=== PATIENT | male | born 1965 | race Two or more races ===

== ENCOUNTER 2021-02-01 12:49 | Inpatient (IN) | payer MEDICAID ==
[~2021-02-01] VITALS: Ht 160 cm; Wt 76.5 kg
[2021-02-01] MEDS ORDERED: SODIUM CHLORIDE 0.9% 1,000 ML IV ONE (15:45)
[2021-02-01] MEDS ORDERED: KETOROLAC TROMETHAMINE 30 MG/ML VIAL IVP ONE (15:45)
[2021-02-01] MEDS ORDERED: VANCOMYCIN HCL 1 GM/D5% WATER 200 ML IV ONE (15:45)
[2021-02-01] MEDS ORDERED: 0.9% SODIUM CHLORIDE 10 ML SYRINGE IVP PRN (15:45)
[2021-02-01 16:14] LABS: COVID AG,FIA SOURCE NASOPHARYNGEAL
[2021-02-01 16:17] LABS: BASOPHILS % (AUTO) 0.2 % (0.0-2.0); EOSINOPHILS % (AUTO) 0.8 % (1.0-6.0); HEMATOCRIT 42.7 % (41-53); HEMOGLOBIN 14.4 g/dL (13.5-17.5); LYMPHOCYTES # (AUTO) 1.3 K/uL (1.0-4.8); LYMPHOCYTES % (AUTO) 7.8 % (22.0-44.0); MEAN CORPUSCULAR HEMOGLOBIN 33.7 pg (26.0-34.0); MEAN CORPUSCULAR HGB CONC 33.8 G/dL (31.0-37.0); MEAN CORPUSCULAR VOLUME 100 fL (80-100); MONOCYTES # (AUTO) 1.4 K/uL (0.1-1.0); MONOCYTES % (AUTO) 7.9 % (2.0-9.0); NEUTROPHILS # (AUTO) 14.5 K/uL (1.8-7.7); NEUTROPHILS % (AUTO) 83.3 % (40.0-70.0); PLATELET COUNT (AUTO) 213 K/uL (150-450); RED BLOOD CELL COUNT(AUTO) 4.28 MIL/uL (4.50-5.90); RED CELL DISTRIBUTION WIDTH 12.3 % (11.5-14.5)
[2021-02-01 16:29] LABS: PROTHROMBIN TIME 11.1 SEC (9.4-11.6)
[2021-02-01 16:57] LABS: ALANINE AMINOTRANSFERASE 60 U/L (12-78); ALBUMIN 3.3 g/dL (3.4-5.0); ALKALINE PHOSPHATASE 102 U/L (46-116); ANION GAP 14 mmol/L (8-16); ASPARTATE AMINOTRANSFERASE 15 U/L (15-37); BILIRUBIN,TOTAL 1.5 mg/dL (0.1-1.0); CALCIUM, TOTAL 8.9 mg/dL (8.8-10.5); CARBON DIOXIDE 23 mmol/L (22-29); CHLORIDE 90 mmol/L (98-107); CREATINE KINASE, TOTAL ONLY 53 U/L (39-308); CREATININE 0.76 mg/dL (0.60-1.30); GLOMERULAR FILTR. RATE CALC > 60 mL/min (>60); GLUCOSE,RANDOM 270 mg/dL (70-110); POTASSIUM 3.7 mmol/L (3.5-5.1); SODIUM SERUM 127 mmol/L (136-145); TOTAL PROTEIN, SERUM 8.5 g/dL (6.4-8.2); UREA NITROGEN, BLOOD 15 mg/dL (7-18)
[2021-02-01 17:03] LABS: INFLUENZA TYPE A NEGATIVE FOR TYPE A (NEGATIVE); INFLUENZA TYPE B NEGATIVE FOR TYPE B (NEGATIVE)
[2021-02-01 17:04] LABS: LACTIC ACID 1.9 mmol/L (0.4-2.0)
[2021-02-01] MEDS ORDERED: SODIUM CHLORIDE 0.9% 100 ML ONE (17:22)
[2021-02-01] MEDS ORDERED: IOHEXOL 350 MG/ML 100 ML VIAL ONE (17:22)
[2021-02-01] MEDS ORDERED: ONDANSETRON HCL 4 MG/2 ML VIAL IVP PRN (19:15)
[2021-02-01] MEDS ORDERED: DEXTROSE 50%-WATER 25 GM/50 ML SYRINGE IVP PRN (19:15)
[2021-02-01] MEDS: SODIUM CHLORIDE 0.45% 1,000 ML IV SCH (19:30)
[2021-02-01] MEDS ORDERED: INSULIN GLARGINE,HUM.REC.ANLOG 100 UNITS/ML SQ SCH (21:00)
[2021-02-02] MEDS: VANCOMYCIN HCL 1 GM/D5% WATER 200 ML IV SCH ×7 (00:38→23:28)
[2021-02-02] MEDS: HEPARIN SODIUM,PORCINE 5,000 UNITS/ML VIAL SQ SCH ×4 (00:40→23:28)
[2021-02-02 04:24] LABS: APPEARANCE,URINE CLEAR (CLEAR); BILIRUBIN,URINE NEGATIVE (NEGATIVE); GLUCOSE, URINE (UA) >=1000 mg/dL (NEGATIVE); KETONES,URINE >=80 mg/dL (NEGATIVE); LEUKOCYTE ESTERASE ,URINE NEGATIVE (NEGATIVE); NITRATE,URINE NEGATIVE (NEGATIVE); OCCULT BLOOD,URINE NEGATIVE (NEGATIVE); PH,URINE 5.5 (5.0-8.0); PROTEIN,URINE NEGATIVE (NEGATIVE)
[2021-02-02 05:01] LABS: BACTERIA,URINE Rare /HPF (None Seen); RBC,URINE 0-2 /HPF (0-2); WBC,URINE 0-2 /HPF (0-5)
[2021-02-02 05:04] LABS: ANION GAP 14 mmol/L (8-16); CALCIUM, TOTAL 8.2 mg/dL (8.8-10.5); CARBON DIOXIDE 23 mmol/L (22-29); CHLORIDE 95 mmol/L (98-107); CREATININE 0.68 mg/dL (0.60-1.30); GLOMERULAR FILTR. RATE CALC > 60 mL/min (>60); GLUCOSE,RANDOM 225 mg/dL (70-110); POTASSIUM 3.1 mmol/L (3.5-5.1); SODIUM SERUM 132 mmol/L (136-145); UREA NITROGEN, BLOOD 11 mg/dL (7-18)
[2021-02-02] MEDS: SODIUM CHLORIDE 0.45% 1,000 ML IV SCH ×3 (05:42→21:46)
[2021-02-02 09:23] LABS: GLUCOSE,POINT OF CARE 384 MG/DL (70-110)
[2021-02-02] MEDS: INSULIN LISPRO 100 UNITS/ML SQ PRN ×4 (09:55→21:08)
[2021-02-02] MEDS ORDERED: POTASSIUM CHL 10 MEQ/WATER 50 ML IV PRN (10:00)
[2021-02-02 11:14] VITALS: BP 159/92
[2021-02-02] MEDS: POTASSIUM CHLORIDE 20 MEQ ER TABLET PO PRN ×3 (11:34→22:56)
[2021-02-02] MEDS ORDERED: PNEUMOCOCCAL VACCINE POLYVALENT 0.5 ML VIAL [PPSV23] IM. ONE (12:00)
[2021-02-02 12:50] LABS: GLUCOMETER DEV NAME(LOC) 6N.1; GLUCOSE,POINT OF CARE 275 MG/DL (70-110)
[2021-02-02 15:38] VITALS: BP 139/80
[2021-02-02 18:50] LABS: GLUCOMETER DEV NAME(LOC) 6N.1; GLUCOSE,POINT OF CARE 174 MG/DL (70-110)
[2021-02-02 19:29] VITALS: BP_SYST 124; BP_SYST 146; BP_DIAS 70; BP_DIAS 88
[2021-02-02] MEDS: MELATONIN 3 MG TABLET PO PRN (20:59)
[2021-02-02] MEDS: INSULIN GLARGINE,HUM.REC.ANLOG 100 UNITS/ML SQ SCH (21:01)
[2021-02-02 23:20] VITALS: BP 136/74
[2021-02-03 03:11] VITALS: BP 127/73
[2021-02-03 03:18] LABS: GLUCOMETER DEV NAME(LOC) 6S.1; GLUCOSE,POINT OF CARE 242 MG/DL (70-110)
[2021-02-03] MEDS: INSULIN LISPRO 100 UNITS/ML SQ PRN ×4 (06:55→20:38)
[2021-02-03 07:04] LABS: BASOPHILS % (AUTO) 0.5 % (0.0-2.0); EOSINOPHILS % (AUTO) 3.6 % (1.0-6.0); HEMATOCRIT 38.2 % (41-53); LYMPHOCYTES # (AUTO) 1.9 K/uL (1.0-4.8); LYMPHOCYTES % (AUTO) 13.2 % (22.0-44.0); MEAN CORPUSCULAR HEMOGLOBIN 33.8 pg (26.0-34.0); MEAN CORPUSCULAR VOLUME 99 fL (80-100); MONOCYTES # (AUTO) 1.6 K/uL (0.1-1.0); MONOCYTES % (AUTO) 11.2 % (2.0-9.0); NEUTROPHILS # (AUTO) 10.3 K/uL (1.8-7.7); NEUTROPHILS % (AUTO) 71.5 % (40.0-70.0); PLATELET COUNT (AUTO) 216 K/uL (150-450); RED BLOOD CELL COUNT(AUTO) 3.84 MIL/uL (4.50-5.90); RED CELL DISTRIBUTION WIDTH 11.8 % (11.5-14.5)
[2021-02-03 07:49] LABS: ALANINE AMINOTRANSFERASE 35 U/L (12-78); ALBUMIN 2.3 g/dL (3.4-5.0); ALKALINE PHOSPHATASE 99 U/L (46-116); ANION GAP 9 mmol/L (8-16); ASPARTATE AMINOTRANSFERASE 16 U/L (15-37); BILIRUBIN,TOTAL 0.8 mg/dL (0.1-1.0); CARBON DIOXIDE 26 mmol/L (22-29); CHLORIDE 97 mmol/L (98-107); CREATININE 0.58 mg/dL (0.60-1.30); GLOMERULAR FILTR. RATE CALC > 60 mL/min (>60); GLUCOSE,RANDOM 176 mg/dL (70-110); POTASSIUM 3.5 mmol/L (3.5-5.1); SODIUM SERUM 132 mmol/L (136-145); TOTAL PROTEIN, SERUM 6.9 g/dL (6.4-8.2); UREA NITROGEN, BLOOD 9 mg/dL (7-18); VANCOMYCIN,RANDOM 7.4 mcg/mL (25.0-50.0)
[2021-02-03 08:15] VITALS: BP 132/76
[2021-02-03 08:19] LABS: GLUCOMETER DEV NAME(LOC) 6N.1; GLUCOSE,POINT OF CARE 179 MG/DL (70-110)
[2021-02-03] MEDS: HEPARIN SODIUM,PORCINE 5,000 UNITS/ML VIAL SQ SCH ×3 (08:53→23:52)
[2021-02-03] MEDS: VANCOMYCIN HCL 1 GM/D5% WATER 200 ML IV SCH (08:53)
[2021-02-03] MEDS: SODIUM CHLORIDE 0.45% 1,000 ML IV SCH ×2 (11:18→23:52)
[2021-02-03] MEDS: VANCOMYCIN HCL 1.25 GM in DEXTROSE 5%-WATER 250 ML IV SCH ×2 (17:06→23:55)
[2021-02-03 18:07] LABS: GLUCOMETER DEV NAME(LOC) 6S.1; GLUCOSE,POINT OF CARE 240 MG/DL (70-110)
[2021-02-03 18:07] LABS: GLUCOMETER DEV NAME(LOC) 6N.1; GLUCOSE,POINT OF CARE 300 MG/DL (70-110)
[2021-02-03 19:45] VITALS: BP 147/91
[2021-02-03] MEDS: INSULIN GLARGINE,HUM.REC.ANLOG 100 UNITS/ML SQ SCH (20:37)
[2021-02-03] MEDS: MELATONIN 3 MG TABLET PO PRN (20:39)
[2021-02-04 00:37] VITALS: BP 142/85
[2021-02-04 01:17] LABS: GLUCOMETER DEV NAME(LOC) 6N.1; GLUCOSE,POINT OF CARE 275 MG/DL (70-110)
[2021-02-04] MEDS: ACETAMINOPHEN 325 MG TABLET PO PRN ×3 (04:32→18:33)
[2021-02-04 04:53] VITALS: BP 138/83
[2021-02-04] MEDS: INSULIN LISPRO 100 UNITS/ML SQ PRN ×4 (05:52→20:17)
[2021-02-04 06:28] LABS: GLUCOMETER DEV NAME(LOC) 6N.1; GLUCOSE,POINT OF CARE 197 MG/DL (70-110)
[2021-02-04 07:29] LABS: ALANINE AMINOTRANSFERASE 35 U/L (12-78); ALBUMIN 2.3 g/dL (3.4-5.0); ALKALINE PHOSPHATASE 97 U/L (46-116); ANION GAP 7 mmol/L (8-16); ASPARTATE AMINOTRANSFERASE 20 U/L (15-37); BILIRUBIN,TOTAL 0.5 mg/dL (0.1-1.0); CALCIUM, TOTAL 8.2 mg/dL (8.8-10.5); CARBON DIOXIDE 29 mmol/L (22-29); CHLORIDE 97 mmol/L (98-107); CREATININE 0.64 mg/dL (0.60-1.30); GLOMERULAR FILTR. RATE CALC > 60 mL/min (>60); GLUCOSE,RANDOM 209 mg/dL (70-110); POTASSIUM 3.2 mmol/L (3.5-5.1); SODIUM SERUM 133 mmol/L (136-145); TOTAL PROTEIN, SERUM 6.8 g/dL (6.4-8.2); UREA NITROGEN, BLOOD 8 mg/dL (7-18)
[2021-02-04 07:31] LABS: BASOPHILS % (AUTO) 0.8 % (0.0-2.0); EOSINOPHILS % (AUTO) 5.3 % (1.0-6.0); HEMATOCRIT 37.6 % (41-53); HEMOGLOBIN 12.9 g/dL (13.5-17.5); LYMPHOCYTES # (AUTO) 1.7 K/uL (1.0-4.8); LYMPHOCYTES % (AUTO) 14.4 % (22.0-44.0); MEAN CORPUSCULAR HEMOGLOBIN 34.1 pg (26.0-34.0); MEAN CORPUSCULAR HGB CONC 34.3 G/dL (31.0-37.0); MEAN CORPUSCULAR VOLUME 100 fL (80-100); MONOCYTES # (AUTO) 1.7 K/uL (0.1-1.0); MONOCYTES % (AUTO) 14.5 % (2.0-9.0); NEUTROPHILS # (AUTO) 7.6 K/uL (1.8-7.7); PLATELET COUNT (AUTO) 259 K/uL (150-450); RED BLOOD CELL COUNT(AUTO) 3.78 MIL/uL (4.50-5.90); RED CELL DISTRIBUTION WIDTH 11.9 % (11.5-14.5)
[2021-02-04 07:44] VITALS: BP 121/78
[2021-02-04] MEDS: HEPARIN SODIUM,PORCINE 5,000 UNITS/ML VIAL SQ SCH ×3 (08:31→23:52)
[2021-02-04] MEDS: POTASSIUM CHLORIDE 20 MEQ ER TABLET PO PRN (08:31)
[2021-02-04] MEDS: SODIUM CHLORIDE 0.45% 1,000 ML IV SCH (08:32)
[2021-02-04] MEDS: VANCOMYCIN HCL 1.25 GM in DEXTROSE 5%-WATER 250 ML IV SCH ×3 (09:12→23:50)
[2021-02-04] MEDS ORDERED: INSULIN GLARGINE,HUM.REC.ANLOG 100 UNITS/ML SQ ONE (10:15)
[2021-02-04] MEDS: PIPERACILLIN/TAZO 3.375 GM/D5W 50 ML IV SCH ×3 (11:49→23:51)
[2021-02-04 14:15] LABS: GLUCOMETER DEV NAME(LOC) 6N.1; GLUCOSE,POINT OF CARE 270 MG/DL (70-110)
[2021-02-04 15:26] VITALS: BP 142/84
[2021-02-04 19:00] LABS: GLUCOMETER DEV NAME(LOC) 6N.1; GLUCOSE,POINT OF CARE 196 MG/DL (70-110)
[2021-02-04 20:00] VITALS: BP 148/88
[2021-02-04] MEDS: INSULIN GLARGINE,HUM.REC.ANLOG 100 UNITS/ML SQ SCH (20:16)
[2021-02-04] MEDS: MELATONIN 3 MG TABLET PO PRN (20:18)
[2021-02-04] MEDS ORDERED: DOXYCYCLINE HYCLATE 100 MG TABLET PO SCH (21:00)
[2021-02-04] MEDS ORDERED: SODIUM CHLORIDE 0.9% 500 ML IV ONE (22:05)
[2021-02-05] MEDS: ACETAMINOPHEN 325 MG TABLET PO PRN ×3 (01:22→20:05)
[2021-02-05 04:27] VITALS: BP 147/87
[2021-02-05] MEDS: PIPERACILLIN/TAZO 3.375 GM/D5W 50 ML IV SCH ×4 (06:16→23:02)
[2021-02-05] MEDS: INSULIN LISPRO 100 UNITS/ML SQ PRN ×4 (06:17→20:06)
[2021-02-05 06:38] LABS: BASOPHILS % (AUTO) 0.6 % (0.0-2.0); HEMATOCRIT 38.7 % (41-53); HEMOGLOBIN 13.3 g/dL (13.5-17.5); LYMPHOCYTES # (AUTO) 2.1 K/uL (1.0-4.8); LYMPHOCYTES % (AUTO) 18.9 % (22.0-44.0); MEAN CORPUSCULAR HEMOGLOBIN 33.8 pg (26.0-34.0); MEAN CORPUSCULAR HGB CONC 34.3 G/dL (31.0-37.0); MEAN CORPUSCULAR VOLUME 99 fL (80-100); MONOCYTES # (AUTO) 1.7 K/uL (0.1-1.0); MONOCYTES % (AUTO) 15.7 % (2.0-9.0); NEUTROPHILS # (AUTO) 6.4 K/uL (1.8-7.7); NEUTROPHILS % (AUTO) 57.8 % (40.0-70.0); PLATELET COUNT (AUTO) 288 K/uL (150-450); RED BLOOD CELL COUNT(AUTO) 3.92 MIL/uL (4.50-5.90); RED CELL DISTRIBUTION WIDTH 11.7 % (11.5-14.5)
[2021-02-05 06:54] LABS: ALANINE AMINOTRANSFERASE 33 U/L (12-78); ALBUMIN 2.3 g/dL (3.4-5.0); ALKALINE PHOSPHATASE 91 U/L (46-116); ANION GAP 0 mmol/L (8-16); ASPARTATE AMINOTRANSFERASE 15 U/L (15-37); BILIRUBIN,TOTAL 0.4 mg/dL (0.1-1.0); CALCIUM, TOTAL 8.7 mg/dL (8.8-10.5); CARBON DIOXIDE 31 mmol/L (22-29); CHLORIDE 98 mmol/L (98-107); CREATININE 0.65 mg/dL (0.60-1.30); GLOMERULAR FILTR. RATE CALC > 60 mL/min (>60); GLUCOSE,RANDOM 198 mg/dL (70-110); POTASSIUM 3.6 mmol/L (3.5-5.1); SODIUM SERUM 129 mmol/L (136-145); UREA NITROGEN, BLOOD 7 mg/dL (7-18); VANCOMYCIN,RANDOM 18.1 mcg/mL (25.0-50.0)
[2021-02-05 07:52] VITALS: BP 133/76
[2021-02-05 08:10] LABS: GLUCOMETER DEV NAME(LOC) 6S.1; GLUCOSE,POINT OF CARE 210 MG/DL (70-110)
[2021-02-05 08:10] LABS: GLUCOMETER DEV NAME(LOC) 6N.1; GLUCOSE,POINT OF CARE 330 MG/DL (70-110)
[2021-02-05] MEDS: HEPARIN SODIUM,PORCINE 5,000 UNITS/ML VIAL SQ SCH ×3 (08:44→23:02)
[2021-02-05] MEDS: VANCOMYCIN HCL 1.25 GM in DEXTROSE 5%-WATER 250 ML IV SCH ×3 (08:44→23:47)
[2021-02-05] MEDS: INSULIN GLARGINE,HUM.REC.ANLOG 100 UNITS/ML SQ SCH ×2 (08:45→20:06)
[2021-02-05 13:04] LABS: GLUCOMETER DEV NAME(LOC) 6S.1; GLUCOSE,POINT OF CARE 267 MG/DL (70-110)
[2021-02-05 15:40] VITALS: BP 140/79
[2021-02-05 18:45] LABS: GLUCOMETER DEV NAME(LOC) 6N.1; GLUCOSE,POINT OF CARE 236 MG/DL (70-110)
[2021-02-05] MEDS: MELATONIN 3 MG TABLET PO PRN (20:05)
[2021-02-05 20:34] VITALS: BP 150/82
[2021-02-06 04:33] VITALS: BP 129/77
[2021-02-06] MEDS: PIPERACILLIN/TAZO 3.375 GM/D5W 50 ML IV SCH ×4 (05:29→23:12)
[2021-02-06] MEDS ORDERED: RINGERS SOLUTION,LACTATED 1,000 ML IV ONE ×2 (06:45→06:50)
[2021-02-06] MEDS ORDERED: BUPIVACAINE 0.25%/EPI 1:200,000/PF 10 ML VIAL ONE (07:14)
[2021-02-06 07:18] LABS: BASOPHILS % (AUTO) 0.5 % (0.0-2.0); EOSINOPHILS % (AUTO) 6.3 % (1.0-6.0); HEMATOCRIT 39.9 % (41-53); HEMOGLOBIN 13.8 g/dL (13.5-17.5); LYMPHOCYTES # (AUTO) 2.2 K/uL (1.0-4.8); LYMPHOCYTES % (AUTO) 19.1 % (22.0-44.0); MEAN CORPUSCULAR HEMOGLOBIN 34.2 pg (26.0-34.0); MEAN CORPUSCULAR HGB CONC 34.5 G/dL (31.0-37.0); MEAN CORPUSCULAR VOLUME 99 fL (80-100); MONOCYTES # (AUTO) 1.8 K/uL (0.1-1.0); MONOCYTES % (AUTO) 15.9 % (2.0-9.0); NEUTROPHILS # (AUTO) 6.7 K/uL (1.8-7.7); NEUTROPHILS % (AUTO) 58.2 % (40.0-70.0); PLATELET COUNT (AUTO) 315 K/uL (150-450); RED BLOOD CELL COUNT(AUTO) 4.03 MIL/uL (4.50-5.90); RED CELL DISTRIBUTION WIDTH 11.9 % (11.5-14.5)
[2021-02-06 07:29] LABS: GLUCOMETER DEV NAME(LOC) SDS.; GLUCOSE,POINT OF CARE 252 MG/DL (70-110)
[2021-02-06 07:43] LABS: ALANINE AMINOTRANSFERASE 34 U/L (12-78); ALBUMIN 2.5 g/dL (3.4-5.0); ALKALINE PHOSPHATASE 93 U/L (46-116); ANION GAP 7 mmol/L (8-16); ASPARTATE AMINOTRANSFERASE 21 U/L (15-37); BILIRUBIN,TOTAL 0.4 mg/dL (0.1-1.0); CALCIUM, TOTAL 8.6 mg/dL (8.8-10.5); CARBON DIOXIDE 29 mmol/L (22-29); CHLORIDE 97 mmol/L (98-107); CREATININE 0.66 mg/dL (0.60-1.30); GLOMERULAR FILTR. RATE CALC > 60 mL/min (>60); GLUCOSE,RANDOM 235 mg/dL (70-110); POTASSIUM 3.9 mmol/L (3.5-5.1); SODIUM SERUM 133 mmol/L (136-145); TOTAL PROTEIN, SERUM 7.5 g/dL (6.4-8.2); UREA NITROGEN, BLOOD 11 mg/dL (7-18)
[2021-02-06 07:52] LABS: GLUCOMETER DEV NAME(LOC) 6S.1; GLUCOSE,POINT OF CARE 242 MG/DL (70-110)
[2021-02-06 07:52] LABS: GLUCOMETER DEV NAME(LOC) 6S.1; GLUCOSE,POINT OF CARE 230 MG/DL (70-110)
[2021-02-06] MEDS: HEPARIN SODIUM,PORCINE 5,000 UNITS/ML VIAL SQ SCH ×2 (08:00→15:20)
[2021-02-06] MEDS: VANCOMYCIN HCL 1.25 GM in DEXTROSE 5%-WATER 250 ML IV SCH ×2 (08:00→15:11)
[2021-02-06] MEDS ORDERED: BACITRACIN 50,000 UNITS/VIAL ONE (08:20)
[2021-02-06] MEDS ORDERED: SODIUM CHLORIDE 0.9% 0 ML ONE (08:20)
[2021-02-06] MEDS ORDERED: LIDOCAINE/PF 1% 30 ML VIAL ONE (08:20)
[2021-02-06] MEDS ORDERED: HYDROmorphone 2 MG/ML VIAL IVP PRN (09:30)
[2021-02-06] MEDS ORDERED: MEPERIDINE-PF 25 MG/ML VIAL IVP PRN (09:30)
[2021-02-06] MEDS ORDERED: FentaNYL CITRATE PF 100 MCG/2 ML VIAL IVP PRN (09:30)
[2021-02-06 10:28] VITALS: BP 129/76
[2021-02-06] MEDS: INSULIN GLARGINE,HUM.REC.ANLOG 100 UNITS/ML SQ SCH ×2 (10:34→20:11)
[2021-02-06] MEDS: ACETAMINOPHEN 325 MG TABLET PO PRN (15:11)
[2021-02-06 15:46] VITALS: BP 143/85
[2021-02-06 16:10] LABS: GLUCOMETER DEV NAME(LOC) 6N.1; GLUCOSE,POINT OF CARE 267 MG/DL (70-110)
[2021-02-06] MEDS: INSULIN LISPRO 100 UNITS/ML SQ PRN ×2 (17:38→20:10)
[2021-02-06 18:28] LABS: GLUCOMETER DEV NAME(LOC) 6N.1; GLUCOSE,POINT OF CARE 357 MG/DL (70-110)
[2021-02-06 19:32] VITALS: BP 125/76
[2021-02-06] MEDS: OXYGEN THERAPY IH SCH (20:00)
[2021-02-06] MEDS: MELATONIN 3 MG TABLET PO PRN (20:09)
[2021-02-06 21:42] LABS: GLUCOMETER DEV NAME(LOC) 6S.1; GLUCOSE,POINT OF CARE 382 MG/DL (70-110)
[2021-02-06] MEDS ORDERED: SODIUM CHLORIDE 0.9% 500 ML IV ONE (22:08)
[2021-02-06] MEDS ORDERED: PROPOFOL 1% 20 ML VIAL IVP ONE (23:55)
[2021-02-06] MEDS ORDERED: SUCCINYLCHOLINE CHLORIDE 20 MG/ML 10 ML VIAL IVP ONE (23:55)
[2021-02-06] MEDS ORDERED: LIDOCAINE/PF 2% 5 ML VIAL IM ONE (23:55)
[2021-02-06] MEDS ORDERED: ONDANSETRON HCL 4 MG/2 ML VIAL IVP ONE (23:55)
[2021-02-06] MEDS ORDERED: NEOSTIGMINE METHYLSULFATE 1 MG/ML 10 ML VIAL IVP ONE (23:55)
[2021-02-06] MEDS ORDERED: MIDAZOLAM HCL 2 MG/2 ML VIAL IVP ONE (23:55)
[2021-02-06] MEDS ORDERED: FentaNYL CITRATE PF 100 MCG/2 ML VIAL IVP ONE (23:55)
[2021-02-06] MEDS ORDERED: GLYCOPYRROLATE 0.2 MG/ML VIAL IM ONE (23:55)
[2021-02-06] MEDS ORDERED: ROCURONIUM BROMIDE 10 MG/ML 5 ML VIAL IVP ONE (23:55)
[2021-02-06] MEDS ORDERED: DEXAMETHASONE SOD PHOS 4 MG/ML VIAL IVP ONE (23:55)
[2021-02-07] MEDS: HEPARIN SODIUM,PORCINE 5,000 UNITS/ML VIAL SQ SCH ×4 (00:13→23:20)
[2021-02-07] MEDS: VANCOMYCIN HCL 1.25 GM in DEXTROSE 5%-WATER 250 ML IV SCH ×4 (00:13→23:20)
[2021-02-07] MEDS: ACETAMINOPHEN 325 MG TABLET PO PRN (04:27)
[2021-02-07 04:35] VITALS: BP 136/82
[2021-02-07] MEDS: PIPERACILLIN/TAZO 3.375 GM/D5W 50 ML IV SCH ×3 (05:55→19:42)
[2021-02-07] MEDS: INSULIN LISPRO 100 UNITS/ML SQ PRN ×4 (05:56→20:05)
[2021-02-07] MEDS: MORPHINE SULFATE 2 MG/ML SYRINGE IVP PRN ×2 (06:10→11:16)
[2021-02-07 06:42] LABS: BASOPHILS % (AUTO) 0.9 % (0.0-2.0); EOSINOPHILS % (AUTO) 3.9 % (1.0-6.0); HEMATOCRIT 35.6 % (41-53); HEMOGLOBIN 12.2 g/dL (13.5-17.5); LYMPHOCYTES # (AUTO) 2.5 K/uL (1.0-4.8); LYMPHOCYTES % (AUTO) 28.6 % (22.0-44.0); MEAN CORPUSCULAR HEMOGLOBIN 34.1 pg (26.0-34.0); MEAN CORPUSCULAR HGB CONC 34.2 G/dL (31.0-37.0); MEAN CORPUSCULAR VOLUME 100 fL (80-100); MONOCYTES # (AUTO) 1.2 K/uL (0.1-1.0); MONOCYTES % (AUTO) 13.7 % (2.0-9.0); NEUTROPHILS # (AUTO) 4.7 K/uL (1.8-7.7); NEUTROPHILS % (AUTO) 52.9 % (40.0-70.0); PLATELET COUNT (AUTO) 335 K/uL (150-450); RED BLOOD CELL COUNT(AUTO) 3.57 MIL/uL (4.50-5.90); RED CELL DISTRIBUTION WIDTH 11.8 % (11.5-14.5)
[2021-02-07 06:45] LABS: GLUCOMETER DEV NAME(LOC) 6N.1; GLUCOSE,POINT OF CARE 324 MG/DL (70-110)
[2021-02-07 06:50] LABS: ALANINE AMINOTRANSFERASE 40 U/L (12-78); ALBUMIN 2.3 g/dL (3.4-5.0); ALKALINE PHOSPHATASE 86 U/L (46-116); ANION GAP 8 mmol/L (8-16); ASPARTATE AMINOTRANSFERASE 29 U/L (15-37); BILIRUBIN,TOTAL 0.2 mg/dL (0.1-1.0); CALCIUM, TOTAL 8.2 mg/dL (8.8-10.5); CARBON DIOXIDE 30 mmol/L (22-29); CHLORIDE 95 mmol/L (98-107); CREATININE 0.78 mg/dL (0.60-1.30); GLOMERULAR FILTR. RATE CALC > 60 mL/min (>60); GLUCOSE,RANDOM 347 mg/dL (70-110); POTASSIUM 3.8 mmol/L (3.5-5.1); SODIUM SERUM 133 mmol/L (136-145); TOTAL PROTEIN, SERUM 6.9 g/dL (6.4-8.2); UREA NITROGEN, BLOOD 12 mg/dL (7-18); VANCOMYCIN,RANDOM 18.6 mcg/mL (25.0-50.0)
[2021-02-07 07:56] VITALS: BP 114/66
[2021-02-07] MEDS: OXYGEN THERAPY IH SCH ×2 (08:00→19:46)
[2021-02-07] MEDS: INSULIN GLARGINE,HUM.REC.ANLOG 100 UNITS/ML SQ SCH (08:50)
[2021-02-07] MEDS ORDERED: INSULIN GLARGINE,HUM.REC.ANLOG 100 UNITS/ML SQ SCH ×2 (09:00→21:00)
[2021-02-07] MEDS ORDERED: INSULIN GLARGINE,HUM.REC.ANLOG 100 UNITS/ML SQ ONE (09:15)
[2021-02-07 12:24] VITALS: BP 154/77
[2021-02-07 13:32] LABS: GLUCOMETER DEV NAME(LOC) 6S.1; GLUCOSE,POINT OF CARE 319 MG/DL (70-110)
[2021-02-07] MEDS ORDERED: MORPHINE SULFATE 2 MG/ML SYRINGE IVP ONE (14:00)
[2021-02-07 18:30] LABS: GLUCOMETER DEV NAME(LOC) 6S.1; GLUCOSE,POINT OF CARE 271 MG/DL (70-110)
[2021-02-07 20:38] VITALS: BP 139/79
[2021-02-07 23:55] LABS: GLUCOMETER DEV NAME(LOC) 6N.1; GLUCOSE,POINT OF CARE 306 MG/DL (70-110)
[2021-02-08] MEDS: PIPERACILLIN/TAZO 3.375 GM/D5W 50 ML IV SCH ×2 (00:53→05:55)
[2021-02-08 05:12] VITALS: BP 144/81
[2021-02-08] MEDS: INSULIN LISPRO 100 UNITS/ML SQ PRN ×4 (06:07→20:29)
[2021-02-08 06:35] LABS: BASOPHILS % (AUTO) 1.3 % (0.0-2.0); EOSINOPHILS % (AUTO) 7.4 % (1.0-6.0); HEMATOCRIT 36.6 % (41-53); HEMOGLOBIN 12.4 g/dL (13.5-17.5); LYMPHOCYTES # (AUTO) 2.3 K/uL (1.0-4.8); LYMPHOCYTES % (AUTO) 31.6 % (22.0-44.0); MEAN CORPUSCULAR HEMOGLOBIN 33.9 pg (26.0-34.0); MEAN CORPUSCULAR HGB CONC 33.9 G/dL (31.0-37.0); MEAN CORPUSCULAR VOLUME 100 fL (80-100); MONOCYTES # (AUTO) 0.8 K/uL (0.1-1.0); MONOCYTES % (AUTO) 11.1 % (2.0-9.0); NEUTROPHILS # (AUTO) 3.5 K/uL (1.8-7.7); NEUTROPHILS % (AUTO) 48.6 % (40.0-70.0); PLATELET COUNT (AUTO) 358 K/uL (150-450); RED BLOOD CELL COUNT(AUTO) 3.67 MIL/uL (4.50-5.90); RED CELL DISTRIBUTION WIDTH 11.8 % (11.5-14.5)
[2021-02-08 07:23] LABS: ALANINE AMINOTRANSFERASE 53 U/L (12-78); ALBUMIN 2.4 g/dL (3.4-5.0); ALKALINE PHOSPHATASE 74 U/L (46-116); ANION GAP 6 mmol/L (8-16); ASPARTATE AMINOTRANSFERASE 37 U/L (15-37); BILIRUBIN,TOTAL 0.2 mg/dL (0.1-1.0); CALCIUM, TOTAL 8.3 mg/dL (8.8-10.5); CARBON DIOXIDE 30 mmol/L (22-29); CHLORIDE 99 mmol/L (98-107); GLOMERULAR FILTR. RATE CALC > 60 mL/min (>60); GLUCOSE,RANDOM 156 mg/dL (70-110); POTASSIUM 3.7 mmol/L (3.5-5.1); SODIUM SERUM 135 mmol/L (136-145); TOTAL PROTEIN, SERUM 7.2 g/dL (6.4-8.2); UREA NITROGEN, BLOOD 10 mg/dL (7-18)
[2021-02-08 07:40] VITALS: BP 145/79
[2021-02-08] MEDS: OXYGEN THERAPY IH SCH ×2 (08:00→20:34)
[2021-02-08] MEDS: HEPARIN SODIUM,PORCINE 5,000 UNITS/ML VIAL SQ SCH ×2 (08:57→15:59)
[2021-02-08] MEDS: INSULIN GLARGINE,HUM.REC.ANLOG 100 UNITS/ML SQ SCH ×2 (08:59→20:30)
[2021-02-08] MEDS: MORPHINE SULFATE 2 MG/ML SYRINGE IVP PRN (09:18)
[2021-02-08] MEDS: CeFAZolin 2 GM/DEXTROSE 50 ML IV SCH ×2 (09:22→16:01)
[2021-02-08] MEDS ORDERED: SODIUM CHLORIDE 0.9% IRRIG BTL 1,000 ML IRRIG ONE (11:12)
[2021-02-08 16:00] VITALS: BP 146/88
[2021-02-08] MEDS: ACETAMINOPHEN 325 MG TABLET PO PRN (16:04)
[2021-02-08 18:59] LABS: GLUCOMETER DEV NAME(LOC) 6S.1; GLUCOSE,POINT OF CARE 288 MG/DL (70-110)
[2021-02-08 18:59] LABS: GLUCOMETER DEV NAME(LOC) 6N.1; GLUCOSE,POINT OF CARE 154 MG/DL (70-110)
[2021-02-08 18:59] LABS: GLUCOMETER DEV NAME(LOC) 6N.1; GLUCOSE,POINT OF CARE 200 MG/DL (70-110)
[2021-02-08] MEDS: MELATONIN 3 MG TABLET PO PRN (20:37)
[2021-02-08 20:40] VITALS: BP 149/85
[2021-02-09] MEDS: HEPARIN SODIUM,PORCINE 5,000 UNITS/ML VIAL SQ SCH ×3 (00:07→16:58)
[2021-02-09 00:08] LABS: GLUCOMETER DEV NAME(LOC) 6N.1; GLUCOSE,POINT OF CARE 335 MG/DL (70-110)
[2021-02-09] MEDS: CeFAZolin 2 GM/DEXTROSE 50 ML IV SCH ×3 (00:08→16:58)
[2021-02-09 04:30] VITALS: BP 151/84
[2021-02-09] MEDS: INSULIN LISPRO 100 UNITS/ML SQ PRN ×4 (05:25→20:13)
[2021-02-09 06:42] LABS: BASOPHILS % (AUTO) 0.9 % (0.0-2.0); EOSINOPHILS % (AUTO) 6.1 % (1.0-6.0); HEMATOCRIT 37.6 % (41-53); HEMOGLOBIN 12.8 g/dL (13.5-17.5); LYMPHOCYTES # (AUTO) 2.2 K/uL (1.0-4.8); LYMPHOCYTES % (AUTO) 26.7 % (22.0-44.0); MEAN CORPUSCULAR VOLUME 100 fL (80-100); MONOCYTES % (AUTO) 11.8 % (2.0-9.0); NEUTROPHILS # (AUTO) 4.5 K/uL (1.8-7.7); NEUTROPHILS % (AUTO) 54.5 % (40.0-70.0); PLATELET COUNT (AUTO) 366 K/uL (150-450); RED BLOOD CELL COUNT(AUTO) 3.76 MIL/uL (4.50-5.90); RED CELL DISTRIBUTION WIDTH 11.8 % (11.5-14.5)
[2021-02-09 06:54] LABS: GLUCOMETER DEV NAME(LOC) 6N.1; GLUCOSE,POINT OF CARE 211 MG/DL (70-110)
[2021-02-09 07:02] LABS: ALANINE AMINOTRANSFERASE 52 U/L (12-78); ALBUMIN 2.6 g/dL (3.4-5.0); ALKALINE PHOSPHATASE 75 U/L (46-116); ANION GAP 6 mmol/L (8-16); ASPARTATE AMINOTRANSFERASE 30 U/L (15-37); BILIRUBIN,TOTAL 0.2 mg/dL (0.1-1.0); CARBON DIOXIDE 30 mmol/L (22-29); CHLORIDE 99 mmol/L (98-107); CREATININE 0.58 mg/dL (0.60-1.30); GLOMERULAR FILTR. RATE CALC > 60 mL/min (>60); GLUCOSE,RANDOM 216 mg/dL (70-110); POTASSIUM 4.2 mmol/L (3.5-5.1); SODIUM SERUM 135 mmol/L (136-145); TOTAL PROTEIN, SERUM 7.6 g/dL (6.4-8.2); UREA NITROGEN, BLOOD 12 mg/dL (7-18)
[2021-02-09] MEDS: OXYGEN THERAPY IH SCH ×2 (08:00→20:14)
[2021-02-09 08:01] VITALS: BP 121/63
[2021-02-09] MEDS: INSULIN GLARGINE,HUM.REC.ANLOG 100 UNITS/ML SQ SCH ×2 (08:59→20:12)
[2021-02-09 12:47] LABS: GLUCOMETER DEV NAME(LOC) 6N.1; GLUCOSE,POINT OF CARE 231 MG/DL (70-110)
[2021-02-09 15:00] VITALS: BP 144/84
[2021-02-09 18:10] LABS: GLUCOMETER DEV NAME(LOC) 6S.1; GLUCOSE,POINT OF CARE 240 MG/DL (70-110)
[2021-02-09] MEDS: MELATONIN 3 MG TABLET PO PRN (20:11)
[2021-02-09 20:12] VITALS: BP 129/85
[2021-02-09 21:30] LABS: GLUCOMETER DEV NAME(LOC) 6S.1; GLUCOSE,POINT OF CARE 369 MG/DL (70-110)
[2021-02-10] MEDS: CeFAZolin 2 GM/DEXTROSE 50 ML IV SCH ×4 (00:14→23:39)
[2021-02-10] MEDS: HEPARIN SODIUM,PORCINE 5,000 UNITS/ML VIAL SQ SCH ×4 (00:15→23:38)
[2021-02-10 04:55] VITALS: BP 102/67
[2021-02-10] MEDS: INSULIN LISPRO 100 UNITS/ML SQ PRN ×4 (05:20→20:45)
[2021-02-10 07:42] LABS: GLUCOMETER DEV NAME(LOC) 6N.1; GLUCOSE,POINT OF CARE 176 MG/DL (70-110)
[2021-02-10] MEDS: OXYGEN THERAPY IH SCH ×2 (08:00→20:00)
[2021-02-10 08:03] VITALS: BP 118/72
[2021-02-10] MEDS: INSULIN GLARGINE,HUM.REC.ANLOG 100 UNITS/ML SQ SCH ×2 (08:53→20:46)
[2021-02-10] MEDS: ACETAMINOPHEN 325 MG TABLET PO PRN ×2 (10:48→20:47)
[2021-02-10 12:31] LABS: GLUCOMETER DEV NAME(LOC) 6N.1; GLUCOSE,POINT OF CARE 187 MG/DL (70-110)
[2021-02-10 15:41] VITALS: BP 144/80
[2021-02-10 20:00] VITALS: BP 128/66
[2021-02-10] MEDS: MELATONIN 3 MG TABLET PO PRN (20:47)
[2021-02-10 22:09] LABS: GLUCOMETER DEV NAME(LOC) 6S.1; GLUCOSE,POINT OF CARE 366 MG/DL (70-110)
[2021-02-10 22:10] LABS: GLUCOMETER DEV NAME(LOC) 6N.1; GLUCOSE,POINT OF CARE 172 MG/DL (70-110)
[2021-02-11 04:19] VITALS: BP 138/79
[2021-02-11] MEDS: INSULIN LISPRO 100 UNITS/ML SQ PRN ×4 (05:41→19:57)
[2021-02-11 07:02] LABS: GLUCOMETER DEV NAME(LOC) 6N.1; GLUCOSE,POINT OF CARE 183 MG/DL (70-110)
[2021-02-11 07:53] VITALS: BP 124/74
[2021-02-11] MEDS: OXYGEN THERAPY IH SCH (08:00)
[2021-02-11] MEDS: HEPARIN SODIUM,PORCINE 5,000 UNITS/ML VIAL SQ SCH ×2 (08:11→16:29)
[2021-02-11] MEDS: CeFAZolin 2 GM/DEXTROSE 50 ML IV SCH ×2 (08:12→18:26)
[2021-02-11] MEDS: INSULIN GLARGINE,HUM.REC.ANLOG 100 UNITS/ML SQ SCH ×2 (08:12→20:00)
[2021-02-11] MEDS: MORPHINE SULFATE 2 MG/ML SYRINGE IVP PRN (14:55)
[2021-02-11] MEDS: MAGNESIUM HYDROXIDE SUSPENSION 30 ML UDCUP PO PRN (15:29)
[2021-02-11 15:38] VITALS: BP 138/83
[2021-02-11 16:24] LABS: GLUCOMETER DEV NAME(LOC) 6S.1; GLUCOSE,POINT OF CARE 309 MG/DL (70-110)
[2021-02-11] MEDS ORDERED: SODIUM CHLORIDE 0.9% 500 ML IV ONE (17:49)
[2021-02-11 17:54] LABS: GLUCOMETER DEV NAME(LOC) 6N.1; GLUCOSE,POINT OF CARE 268 MG/DL (70-110)
[2021-02-11 20:05] VITALS: BP 145/86
[2021-02-11] MEDS: MELATONIN 3 MG TABLET PO PRN (20:11)
[2021-02-11 21:50] LABS: GLUCOMETER DEV NAME(LOC) 6N.1; GLUCOSE,POINT OF CARE 247 MG/DL (70-110)
[2021-02-12] MEDS: CeFAZolin 2 GM/DEXTROSE 50 ML IV SCH ×3 (00:14→16:57)
[2021-02-12] MEDS: HEPARIN SODIUM,PORCINE 5,000 UNITS/ML VIAL SQ SCH ×4 (00:14→23:44)
[2021-02-12 05:15] VITALS: BP 124/81
[2021-02-12] MEDS: MAGNESIUM HYDROXIDE SUSPENSION 30 ML UDCUP PO PRN (05:39)
[2021-02-12 06:02] LABS: GLUCOMETER DEV NAME(LOC) 6S.1; GLUCOSE,POINT OF CARE 138 MG/DL (70-110)
[2021-02-12 07:32] VITALS: BP 134/65
[2021-02-12] MEDS: ACETAMINOPHEN 325 MG TABLET PO PRN ×2 (07:56→19:53)
[2021-02-12] MEDS: OXYGEN THERAPY IH SCH (07:58)
[2021-02-12] MEDS: INSULIN GLARGINE,HUM.REC.ANLOG 100 UNITS/ML SQ SCH ×2 (08:05→20:48)
[2021-02-12 11:36] LABS: GLUCOMETER DEV NAME(LOC) 6N.1; GLUCOSE,POINT OF CARE 198 MG/DL (70-110)
[2021-02-12] MEDS: INSULIN LISPRO 100 UNITS/ML SQ PRN ×3 (11:37→20:48)
[2021-02-12 15:41] VITALS: BP 127/77
[2021-02-12 19:06] LABS: GLUCOMETER DEV NAME(LOC) 6S.1; GLUCOSE,POINT OF CARE 180 MG/DL (70-110)
[2021-02-12 19:50] VITALS: BP 144/87
[2021-02-12] MEDS: MELATONIN 3 MG TABLET PO PRN (19:54)
[2021-02-13] MEDS: CeFAZolin 2 GM/DEXTROSE 50 ML IV SCH ×2 (00:13→10:23)
[2021-02-13 00:17] LABS: GLUCOMETER DEV NAME(LOC) 6N.1; GLUCOSE,POINT OF CARE 272 MG/DL (70-110)
[2021-02-13 04:45] VITALS: BP 123/73
[2021-02-13] MEDS: INSULIN LISPRO 100 UNITS/ML SQ PRN ×4 (05:14→20:55)
[2021-02-13] MEDS: ACETAMINOPHEN 325 MG TABLET PO PRN (05:14)
[2021-02-13 05:52] LABS: GLUCOMETER DEV NAME(LOC) 6S.1; GLUCOSE,POINT OF CARE 166 MG/DL (70-110)
[2021-02-13] MEDS: OXYGEN THERAPY IH SCH ×2 (08:00→20:00)
[2021-02-13] MEDS: HEPARIN SODIUM,PORCINE 5,000 UNITS/ML VIAL SQ SCH ×3 (08:00→22:35)
[2021-02-13 08:31] VITALS: BP 137/89
[2021-02-13] MEDS: INSULIN GLARGINE,HUM.REC.ANLOG 100 UNITS/ML SQ SCH ×2 (09:09→20:52)
[2021-02-13] MEDS: MAGNESIUM HYDROXIDE SUSPENSION 30 ML UDCUP PO PRN (10:28)
[2021-02-13] MEDS: MORPHINE SULFATE 2 MG/ML SYRINGE IVP PRN (11:05)
[2021-02-13] MEDS: DiphenhydrAMINE HCL 25 MG CAPSULE PO PRN ×2 (13:46→20:46)
[2021-02-13 13:58] LABS: GLUCOMETER DEV NAME(LOC) 6S.1; GLUCOSE,POINT OF CARE 226 MG/DL (70-110)
[2021-02-13] MEDS: DOXYCYCLINE HYCLATE 100 MG in DEXTROSE 5%-WATER 100 ML IV SCH (14:41)
[2021-02-13] MEDS ORDERED: DiphenhydrAMINE HCL 25 MG CAPSULE PO SCH (16:00)
[2021-02-13 16:20] VITALS: BP 129/81
[2021-02-13 20:00] VITALS: BP 134/76
[2021-02-13] MEDS: MELATONIN 3 MG TABLET PO PRN (20:46)
[2021-02-13 21:23] LABS: GLUCOMETER DEV NAME(LOC) 6S.1; GLUCOSE,POINT OF CARE 203 MG/DL (70-110)
[2021-02-13 21:31] LABS: GLUCOMETER DEV NAME(LOC) 6N.1; GLUCOSE,POINT OF CARE 197 MG/DL (70-110)
[2021-02-14] MEDS: DOXYCYCLINE HYCLATE 100 MG in DEXTROSE 5%-WATER 100 ML IV SCH ×2 (02:10→14:00)
[2021-02-14 04:00] VITALS: BP 123/70
[2021-02-14 06:24] LABS: GLUCOMETER DEV NAME(LOC) 6N.1; GLUCOSE,POINT OF CARE 159 MG/DL (70-110)
[2021-02-14] MEDS ORDERED: MINERAL OIL 90 ML BOTTLE TP PRN (07:45)
[2021-02-14] MEDS: HEPARIN SODIUM,PORCINE 5,000 UNITS/ML VIAL SQ SCH ×2 (08:00→15:19)
[2021-02-14] MEDS: OXYGEN THERAPY IH SCH ×3 (08:00→20:00)
[2021-02-14 08:15] VITALS: BP 127/73
[2021-02-14] MEDS: INSULIN GLARGINE,HUM.REC.ANLOG 100 UNITS/ML SQ SCH ×2 (09:00→20:39)
[2021-02-14] MEDS ORDERED: BUPIVACAINE 0.25%/EPI 1:200,000/PF 10 ML VIAL ONE ×4 (09:24→12:08)
[2021-02-14] MEDS ORDERED: MINERAL OIL 10 ML VIAL TP ONE ×4 (09:24→11:17)
[2021-02-14] MEDS ORDERED: SODIUM CHLORIDE 0.9% 1,000 ML ONE (11:24)
[2021-02-14 11:52] LABS: BASOPHILS % (AUTO) 1.2 % (0.0-2.0); EOSINOPHILS % (AUTO) 9.8 % (1.0-6.0); LYMPHOCYTES # (AUTO) 2.6 K/uL (1.0-4.8); LYMPHOCYTES % (AUTO) 37.7 % (22.0-44.0); MEAN CORPUSCULAR HGB CONC 34.2 G/dL (31.0-37.0); MEAN CORPUSCULAR VOLUME 99 fL (80-100); MONOCYTES # (AUTO) 0.8 K/uL (0.1-1.0); MONOCYTES % (AUTO) 10.9 % (2.0-9.0); NEUTROPHILS # (AUTO) 2.8 K/uL (1.8-7.7); NEUTROPHILS % (AUTO) 40.4 % (40.0-70.0); PLATELET COUNT (AUTO) 445 K/uL (150-450); RED BLOOD CELL COUNT(AUTO) 3.83 MIL/uL (4.50-5.90); RED CELL DISTRIBUTION WIDTH 11.9 % (11.5-14.5)
[2021-02-14 12:00] LABS: ANION GAP 3 mmol/L (8-16); CARBON DIOXIDE 32 mmol/L (22-29); CHLORIDE 103 mmol/L (98-107); CREATININE 0.68 mg/dL (0.60-1.30); GLOMERULAR FILTR. RATE CALC > 60 mL/min (>60); GLUCOSE,RANDOM 107 mg/dL (70-110); SODIUM SERUM 138 mmol/L (136-145); UREA NITROGEN, BLOOD 13 mg/dL (7-18)
[2021-02-14] MEDS ORDERED: ROCURONIUM BROMIDE 10 MG/ML 5 ML VIAL IVP ONE (12:00)
[2021-02-14] MEDS ORDERED: DEXAMETHASONE SOD PHOS 4 MG/ML VIAL IVP ONE (12:00)
[2021-02-14] MEDS ORDERED: LIDOCAINE/PF 2% 5 ML VIAL IM ONE (12:00)
[2021-02-14] MEDS ORDERED: PROPOFOL 1% 20 ML VIAL IVP ONE (12:00)
[2021-02-14] MEDS ORDERED: 0.9% SODIUM CHLORIDE 10 ML VIAL IVP ONE (12:00)
[2021-02-14] MEDS ORDERED: FentaNYL CITRATE PF 100 MCG/2 ML VIAL IVP ONE (12:00)
[2021-02-14] MEDS ORDERED: ONDANSETRON HCL 4 MG/2 ML VIAL IVP ONE (12:00)
[2021-02-14] MEDS ORDERED: KETOROLAC TROMETHAMINE 60 MG/2 ML VIAL IM ONE (12:00)
[2021-02-14] MEDS ORDERED: MIDAZOLAM HCL 2 MG/2 ML VIAL IVP ONE (12:00)
[2021-02-14 12:01] LABS: CALCIUM, TOTAL 8.7 mg/dL (8.8-10.5)
[2021-02-14 12:05] LABS: PROTHROMBIN TIME 10.3 SEC (9.4-11.6)
[2021-02-14 12:07] LABS: ALANINE AMINOTRANSFERASE 34 U/L (12-78); ALBUMIN 3.1 g/dL (3.4-5.0); ALKALINE PHOSPHATASE 73 U/L (46-116); ASPARTATE AMINOTRANSFERASE 23 U/L (15-37); BILIRUBIN,TOTAL 0.3 mg/dL (0.1-1.0); TOTAL PROTEIN, SERUM 8.1 g/dL (6.4-8.2)
[2021-02-14] MEDS ORDERED: HYDROmorphone 2 MG/ML VIAL IVP PRN (13:45)
[2021-02-14] MEDS ORDERED: MEPERIDINE-PF 25 MG/ML VIAL IVP PRN (13:45)
[2021-02-14] MEDS ORDERED: FentaNYL CITRATE PF 100 MCG/2 ML VIAL IVP PRN (13:45)
[2021-02-14] MEDS: INSULIN LISPRO 100 UNITS/ML SQ PRN ×2 (17:48→20:40)
[2021-02-14] MEDS: ACETAMINOPHEN 325 MG TABLET PO PRN (17:50)
[2021-02-14 19:58] VITALS: BP 146/84
[2021-02-14 20:16] LABS: GLUCOMETER DEV NAME(LOC) 6S.1; GLUCOSE,POINT OF CARE 272 MG/DL (70-110)
[2021-02-14] MEDS: MELATONIN 3 MG TABLET PO PRN (20:44)
[2021-02-14] MEDS: DiphenhydrAMINE HCL 25 MG CAPSULE PO PRN (20:44)
[2021-02-14 21:02] LABS: GLUCOMETER DEV NAME(LOC) 6S.1; GLUCOSE,POINT OF CARE 344 MG/DL (70-110)
[2021-02-15] MEDS ORDERED: SODIUM CHLORIDE 0.9% 250 ML IV ONE (01:18)
[2021-02-15] MEDS: DOXYCYCLINE HYCLATE 100 MG in DEXTROSE 5%-WATER 100 ML IV SCH (01:21)
[2021-02-15 04:43] VITALS: BP 157/90
[2021-02-15] MEDS: INSULIN LISPRO 100 UNITS/ML SQ PRN ×4 (05:52→20:15)
[2021-02-15 05:59] LABS: GLUCOMETER DEV NAME(LOC) 6N.1; GLUCOSE,POINT OF CARE 192 MG/DL (70-110)
[2021-02-15] MEDS: OXYGEN THERAPY IH SCH ×4 (08:00→20:00)
[2021-02-15 08:12] VITALS: BP 127/80
[2021-02-15] MEDS: INSULIN GLARGINE,HUM.REC.ANLOG 100 UNITS/ML SQ SCH ×2 (08:23→20:15)
[2021-02-15] MEDS: ACETAMINOPHEN 325 MG TABLET PO PRN ×2 (08:31→17:27)
[2021-02-15] MEDS: MAGNESIUM HYDROXIDE SUSPENSION 30 ML UDCUP PO PRN (08:34)
[2021-02-15 08:52] LABS: BASOPHILS % (AUTO) 0.8 % (0.0-2.0); EOSINOPHILS % (AUTO) 1.1 % (1.0-6.0); HEMATOCRIT 36.1 % (41-53); HEMOGLOBIN 12.5 g/dL (13.5-17.5); LYMPHOCYTES # (AUTO) 1.9 K/uL (1.0-4.8); LYMPHOCYTES % (AUTO) 22.6 % (22.0-44.0); MEAN CORPUSCULAR HEMOGLOBIN 34.1 pg (26.0-34.0); MEAN CORPUSCULAR HGB CONC 34.5 G/dL (31.0-37.0); MEAN CORPUSCULAR VOLUME 99 fL (80-100); MONOCYTES # (AUTO) 0.6 K/uL (0.1-1.0); MONOCYTES % (AUTO) 7.9 % (2.0-9.0); NEUTROPHILS # (AUTO) 5.5 K/uL (1.8-7.7); NEUTROPHILS % (AUTO) 67.6 % (40.0-70.0); PLATELET COUNT (AUTO) 468 K/uL (150-450); RED BLOOD CELL COUNT(AUTO) 3.66 MIL/uL (4.50-5.90)
[2021-02-15 09:03] LABS: ALANINE AMINOTRANSFERASE 38 U/L (12-78); ALBUMIN 2.9 g/dL (3.4-5.0); ALKALINE PHOSPHATASE 75 U/L (46-116); ANION GAP 6 mmol/L (8-16); ASPARTATE AMINOTRANSFERASE 19 U/L (15-37); BILIRUBIN,TOTAL 0.3 mg/dL (0.1-1.0); CALCIUM, TOTAL 8.5 mg/dL (8.8-10.5); CARBON DIOXIDE 27 mmol/L (22-29); CHLORIDE 100 mmol/L (98-107); CREATININE 0.71 mg/dL (0.60-1.30); GLOMERULAR FILTR. RATE CALC > 60 mL/min (>60); GLUCOSE,RANDOM 200 mg/dL (70-110); POTASSIUM 3.9 mmol/L (3.5-5.1); SODIUM SERUM 133 mmol/L (136-145); TOTAL PROTEIN, SERUM 8.1 g/dL (6.4-8.2); UREA NITROGEN, BLOOD 12 mg/dL (7-18)
[2021-02-15] MEDS: CeFAZolin 2 GM/DEXTROSE 50 ML IV SCH ×2 (10:25→17:28)
[2021-02-15 13:23] LABS: GLUCOMETER DEV NAME(LOC) 6N.1; GLUCOSE,POINT OF CARE 232 MG/DL (70-110)
[2021-02-15 15:33] VITALS: BP 140/77
[2021-02-15 18:38] LABS: GLUCOMETER DEV NAME(LOC) 6N.1; GLUCOSE,POINT OF CARE 298 MG/DL (70-110)
[2021-02-15 19:22] VITALS: BP 144/74
[2021-02-15] MEDS: MELATONIN 3 MG TABLET PO PRN (20:14)
[2021-02-15] MEDS: DiphenhydrAMINE HCL 25 MG CAPSULE PO PRN (20:14)
[2021-02-16] MEDS: CeFAZolin 2 GM/DEXTROSE 50 ML IV SCH ×3 (01:06→17:15)
[2021-02-16 01:21] LABS: GLUCOMETER DEV NAME(LOC) 6S.1; GLUCOSE,POINT OF CARE 361 MG/DL (70-110)
[2021-02-16 04:33] VITALS: BP 118/68
[2021-02-16 06:30] LABS: BASOPHILS % (AUTO) 1.4 % (0.0-2.0); EOSINOPHILS % (AUTO) 7.9 % (1.0-6.0); HEMATOCRIT 35.9 % (41-53); HEMOGLOBIN 12.3 g/dL (13.5-17.5); LYMPHOCYTES # (AUTO) 2.9 K/uL (1.0-4.8); LYMPHOCYTES % (AUTO) 44.1 % (22.0-44.0); MEAN CORPUSCULAR HEMOGLOBIN 34.2 pg (26.0-34.0); MEAN CORPUSCULAR HGB CONC 34.3 G/dL (31.0-37.0); MEAN CORPUSCULAR VOLUME 100 fL (80-100); MONOCYTES # (AUTO) 0.7 K/uL (0.1-1.0); MONOCYTES % (AUTO) 10.6 % (2.0-9.0); NEUTROPHILS # (AUTO) 2.4 K/uL (1.8-7.7); PLATELET COUNT (AUTO) 417 K/uL (150-450); RED CELL DISTRIBUTION WIDTH 12.3 % (11.5-14.5)
[2021-02-16 06:42] LABS: ALANINE AMINOTRANSFERASE 35 U/L (12-78); ALBUMIN 2.9 g/dL (3.4-5.0); ALKALINE PHOSPHATASE 67 U/L (46-116); ANION GAP 4 mmol/L (8-16); ASPARTATE AMINOTRANSFERASE 19 U/L (15-37); BILIRUBIN,TOTAL 0.2 mg/dL (0.1-1.0); CALCIUM, TOTAL 8.4 mg/dL (8.8-10.5); CARBON DIOXIDE 30 mmol/L (22-29); CHLORIDE 104 mmol/L (98-107); CREATININE 0.71 mg/dL (0.60-1.30); GLOMERULAR FILTR. RATE CALC > 60 mL/min (>60); GLUCOSE,RANDOM 121 mg/dL (70-110); POTASSIUM 4.4 mmol/L (3.5-5.1); SODIUM SERUM 138 mmol/L (136-145); TOTAL PROTEIN, SERUM 7.3 g/dL (6.4-8.2); UREA NITROGEN, BLOOD 14 mg/dL (7-18)
[2021-02-16 07:29] LABS: GLUCOMETER DEV NAME(LOC) 6S.1; GLUCOSE,POINT OF CARE 122 MG/DL (70-110)
[2021-02-16 07:52] VITALS: BP 133/80
[2021-02-16] MEDS: OXYGEN THERAPY IH SCH ×2 (08:00)
[2021-02-16] MEDS: INSULIN GLARGINE,HUM.REC.ANLOG 100 UNITS/ML SQ SCH ×2 (08:58→20:30)
[2021-02-16] MEDS: ACETAMINOPHEN 325 MG TABLET PO PRN (09:12)
[2021-02-16] MEDS: INSULIN LISPRO 100 UNITS/ML SQ PRN ×3 (11:27→20:29)
[2021-02-16 14:41] LABS: GLUCOMETER DEV NAME(LOC) 6S.1; GLUCOSE,POINT OF CARE 212 MG/DL (70-110)
[2021-02-16] MEDS ORDERED: HEPARIN SODIUM,PORCINE 5,000 UNITS/ML VIAL SQ SCH (15:00)
[2021-02-16 15:23] VITALS: BP 137/82
[2021-02-16] MEDS ORDERED: SODIUM CHLORIDE 0.9% 250 ML IV ONE (17:35)
[2021-02-16 19:56] LABS: GLUCOMETER DEV NAME(LOC) 6N.1; GLUCOSE,POINT OF CARE 219 MG/DL (70-110)
[2021-02-16 20:15] VITALS: BP 126/81
[2021-02-16] MEDS: MORPHINE SULFATE 2 MG/ML SYRINGE IVP PRN (20:23)
[2021-02-16] MEDS: MELATONIN 3 MG TABLET PO PRN (20:23)
[2021-02-16 21:57] LABS: GLUCOMETER DEV NAME(LOC) 6S.1; GLUCOSE,POINT OF CARE 266 MG/DL (70-110)
[2021-02-16] MEDS: DiphenhydrAMINE HCL 25 MG CAPSULE PO PRN (22:42)
[2021-02-17] MEDS: CeFAZolin 2 GM/DEXTROSE 50 ML IV SCH ×3 (02:19→17:06)
[2021-02-17 06:34] LABS: BASOPHILS % (AUTO) 1.4 % (0.0-2.0); EOSINOPHILS % (AUTO) 11.4 % (1.0-6.0); HEMATOCRIT 36.2 % (41-53); HEMOGLOBIN 12.7 g/dL (13.5-17.5); LYMPHOCYTES # (AUTO) 2.5 K/uL (1.0-4.8); LYMPHOCYTES % (AUTO) 36.6 % (22.0-44.0); MEAN CORPUSCULAR HEMOGLOBIN 34.5 pg (26.0-34.0); MEAN CORPUSCULAR VOLUME 98 fL (80-100); MONOCYTES # (AUTO) 0.7 K/uL (0.1-1.0); NEUTROPHILS # (AUTO) 2.8 K/uL (1.8-7.7); NEUTROPHILS % (AUTO) 40.6 % (40.0-70.0); PLATELET COUNT (AUTO) 407 K/uL (150-450); RED BLOOD CELL COUNT(AUTO) 3.68 MIL/uL (4.50-5.90); RED CELL DISTRIBUTION WIDTH 12.1 % (11.5-14.5)
[2021-02-17 06:40] LABS: GLUCOMETER DEV NAME(LOC) 6N.1; GLUCOSE,POINT OF CARE 127 MG/DL (70-110)
[2021-02-17 06:59] LABS: ALANINE AMINOTRANSFERASE 33 U/L (12-78); ALBUMIN 2.9 g/dL (3.4-5.0); ALKALINE PHOSPHATASE 70 U/L (46-116); ANION GAP 5 mmol/L (8-16); ASPARTATE AMINOTRANSFERASE 21 U/L (15-37); BILIRUBIN,TOTAL 0.2 mg/dL (0.1-1.0); CALCIUM, TOTAL 8.9 mg/dL (8.8-10.5); CARBON DIOXIDE 32 mmol/L (22-29); CHLORIDE 101 mmol/L (98-107); CREATININE 0.61 mg/dL (0.60-1.30); GLOMERULAR FILTR. RATE CALC > 60 mL/min (>60); GLUCOSE,RANDOM 133 mg/dL (70-110); POTASSIUM 4.3 mmol/L (3.5-5.1); SODIUM SERUM 138 mmol/L (136-145); TOTAL PROTEIN, SERUM 7.3 g/dL (6.4-8.2); UREA NITROGEN, BLOOD 13 mg/dL (7-18)
[2021-02-17 07:57] VITALS: BP 136/86
[2021-02-17] MEDS: INSULIN GLARGINE,HUM.REC.ANLOG 100 UNITS/ML SQ SCH ×2 (09:12→20:50)
[2021-02-17] MEDS: INSULIN LISPRO 100 UNITS/ML SQ PRN ×3 (11:21→20:50)
[2021-02-17 15:34] LABS: GLUCOMETER DEV NAME(LOC) 6S.1; GLUCOSE,POINT OF CARE 249 MG/DL (70-110)
[2021-02-17 15:56] VITALS: BP 154/88
[2021-02-17] MEDS: DiphenhydrAMINE HCL 25 MG CAPSULE PO PRN (18:47)
[2021-02-17 20:06] VITALS: BP 148/79
[2021-02-17] MEDS: MELATONIN 3 MG TABLET PO PRN (20:48)
[2021-02-17 22:03] LABS: GLUCOMETER DEV NAME(LOC) 6S.1; GLUCOSE,POINT OF CARE 226 MG/DL (70-110)
[2021-02-17 22:03] LABS: GLUCOMETER DEV NAME(LOC) 6N.1; GLUCOSE,POINT OF CARE 215 MG/DL (70-110)
[2021-02-18] MEDS: CeFAZolin 2 GM/DEXTROSE 50 ML IV SCH ×3 (01:22→17:44)
[2021-02-18 04:39] VITALS: BP 136/76
[2021-02-18] MEDS: INSULIN LISPRO 100 UNITS/ML SQ PRN ×3 (06:16→20:39)
[2021-02-18 06:27] LABS: BASOPHILS % (AUTO) 1.3 % (0.0-2.0); HEMATOCRIT 36.9 % (41-53); HEMOGLOBIN 12.6 g/dL (13.5-17.5); LYMPHOCYTES # (AUTO) 2.5 K/uL (1.0-4.8); LYMPHOCYTES % (AUTO) 38.5 % (22.0-44.0); MEAN CORPUSCULAR HEMOGLOBIN 33.9 pg (26.0-34.0); MEAN CORPUSCULAR HGB CONC 34.3 G/dL (31.0-37.0); MEAN CORPUSCULAR VOLUME 99 fL (80-100); MONOCYTES # (AUTO) 0.7 K/uL (0.1-1.0); MONOCYTES % (AUTO) 11.3 % (2.0-9.0); NEUTROPHILS # (AUTO) 2.1 K/uL (1.8-7.7); NEUTROPHILS % (AUTO) 32.5 % (40.0-70.0); PLATELET COUNT (AUTO) 409 K/uL (150-450); RED BLOOD CELL COUNT(AUTO) 3.73 MIL/uL (4.50-5.90); RED CELL DISTRIBUTION WIDTH 12.1 % (11.5-14.5)
[2021-02-18 06:34] LABS: ANION GAP 9 mmol/L (8-16); CALCIUM, TOTAL 8.6 mg/dL (8.8-10.5); CARBON DIOXIDE 31 mmol/L (22-29); CHLORIDE 102 mmol/L (98-107); CREATININE 0.71 mg/dL (0.60-1.30); GLOMERULAR FILTR. RATE CALC > 60 mL/min (>60); GLUCOSE,RANDOM 172 mg/dL (70-110); POTASSIUM 4.3 mmol/L (3.5-5.1); SODIUM SERUM 142 mmol/L (136-145); UREA NITROGEN, BLOOD 14 mg/dL (7-18)
[2021-02-18 06:52] LABS: EOSINOPHILS % (AUTO) 16.4 % (1.0-6.0)
[2021-02-18 07:33] VITALS: BP 136/88
[2021-02-18 08:09] LABS: GLUCOMETER DEV NAME(LOC) 6S.1; GLUCOSE,POINT OF CARE 167 MG/DL (70-110)
[2021-02-18] MEDS: ACETAMINOPHEN 325 MG TABLET PO PRN (08:42)
[2021-02-18] MEDS: INSULIN GLARGINE,HUM.REC.ANLOG 100 UNITS/ML SQ SCH ×2 (08:43→20:41)
[2021-02-18 14:32] LABS: GLUCOMETER DEV NAME(LOC) 6N.1; GLUCOSE,POINT OF CARE 278 MG/DL (70-110)
[2021-02-18 15:36] VITALS: BP 154/89
[2021-02-18 19:55] VITALS: BP 148/85
[2021-02-18] MEDS: MELATONIN 3 MG TABLET PO PRN (20:38)
[2021-02-18] MEDS: ASCORBIC ACID 500 MG TABLET PO SCH (20:38)
[2021-02-18] MEDS: DiphenhydrAMINE HCL 25 MG CAPSULE PO PRN (20:38)
[2021-02-18 22:38] LABS: GLUCOMETER DEV NAME(LOC) 6N.1; GLUCOSE,POINT OF CARE 261 MG/DL (70-110)
[2021-02-18 22:38] LABS: GLUCOMETER DEV NAME(LOC) 6N.1; GLUCOSE,POINT OF CARE 117 MG/DL (70-110)
[2021-02-19] MEDS: CeFAZolin 2 GM/DEXTROSE 50 ML IV SCH ×3 (01:38→17:28)
[2021-02-19 05:31] VITALS: BP 128/78
[2021-02-19 05:41] VITALS: BP 135/67
[2021-02-19] MEDS: ACETAMINOPHEN 325 MG TABLET PO PRN (06:23)
[2021-02-19 07:47] LABS: GLUCOMETER DEV NAME(LOC) 6S.1; GLUCOSE,POINT OF CARE 129 MG/DL (70-110)
[2021-02-19] MEDS: ASCORBIC ACID 500 MG TABLET PO SCH ×2 (08:26→21:05)
[2021-02-19] MEDS: MULTIVITAMINS WITH MINERALS, THERAPEUTIC TABLET PO SCH (08:26)
[2021-02-19] MEDS: INSULIN GLARGINE,HUM.REC.ANLOG 100 UNITS/ML SQ SCH ×2 (08:27→21:08)
[2021-02-19 08:29] VITALS: BP 127/79
[2021-02-19] MEDS: MAGNESIUM HYDROXIDE SUSPENSION 30 ML UDCUP PO PRN (08:38)
[2021-02-19] MEDS: INSULIN LISPRO 100 UNITS/ML SQ PRN ×2 (11:55→17:33)
[2021-02-19 14:08] LABS: GLUCOMETER DEV NAME(LOC) 6S.1; GLUCOSE,POINT OF CARE 141 MG/DL (70-110)
[2021-02-19 15:14] VITALS: BP 101/65
[2021-02-19] MEDS: DiphenhydrAMINE HCL 25 MG CAPSULE PO PRN (17:43)
[2021-02-19] MEDS: MORPHINE SULFATE 2 MG/ML SYRINGE IVP PRN (17:43)
[2021-02-19 18:56] LABS: GLUCOMETER DEV NAME(LOC) 6S.1; GLUCOSE,POINT OF CARE 185 MG/DL (70-110)
[2021-02-19 19:17] VITALS: BP 155/89
[2021-02-19 20:00] VITALS: BP 155/89
[2021-02-19] MEDS: MELATONIN 3 MG TABLET PO PRN (21:05)
[2021-02-19 21:09] LABS: GLUCOMETER DEV NAME(LOC) 6S.1; GLUCOSE,POINT OF CARE 166 MG/DL (70-110)
[2021-02-20] MEDS: CeFAZolin 2 GM/DEXTROSE 50 ML IV SCH ×3 (03:17→17:22)
[2021-02-20] MEDS: ACETAMINOPHEN 325 MG TABLET PO PRN ×2 (03:23→20:07)
[2021-02-20] MEDS: MAGNESIUM HYDROXIDE SUSPENSION 30 ML UDCUP PO PRN (03:23)
[2021-02-20 04:42] VITALS: BP 136/84
[2021-02-20 06:30] LABS: HEMATOCRIT 36.5 % (41-53); HEMOGLOBIN 12.7 g/dL (13.5-17.5); MEAN CORPUSCULAR HEMOGLOBIN 34.2 pg (26.0-34.0); MEAN CORPUSCULAR HGB CONC 34.8 G/dL (31.0-37.0); MEAN CORPUSCULAR VOLUME 98 fL (80-100); PLATELET COUNT (AUTO) 327 K/uL (150-450); RED BLOOD CELL COUNT(AUTO) 3.71 MIL/uL (4.50-5.90); RED CELL DISTRIBUTION WIDTH 12.1 % (11.5-14.5)
[2021-02-20 06:41] LABS: GLUCOMETER DEV NAME(LOC) 6N.1; GLUCOSE,POINT OF CARE 102 MG/DL (70-110)
[2021-02-20 06:57] LABS: ALANINE AMINOTRANSFERASE 30 U/L (12-78); ALBUMIN 3.1 g/dL (3.4-5.0); ALKALINE PHOSPHATASE 75 U/L (46-116); ANION GAP 12 mmol/L (8-16); ASPARTATE AMINOTRANSFERASE 21 U/L (15-37); BILIRUBIN,TOTAL 0.2 mg/dL (0.1-1.0); CALCIUM, TOTAL 8.4 mg/dL (8.8-10.5); CARBON DIOXIDE 31 mmol/L (22-29); CHLORIDE 100 mmol/L (98-107); CREATININE 0.76 mg/dL (0.60-1.30); GLOMERULAR FILTR. RATE CALC > 60 mL/min (>60); GLUCOSE,RANDOM 109 mg/dL (70-110); SODIUM SERUM 143 mmol/L (136-145); TOTAL PROTEIN, SERUM 7.6 g/dL (6.4-8.2); UREA NITROGEN, BLOOD 16 mg/dL (7-18)
[2021-02-20 08:12] VITALS: BP 130/84
[2021-02-20 08:46] LABS: BAND NEUTROPHILS % (MANUAL) 3 % (0-5); EOSINOPHILS % (MANUAL) 6 % (1-6); LYMPHOCYTES % (MANUAL) 33 % (22-44); MONOCYTES % (MANUAL) 1 % (2-9); SEGMENTED NEUTROPHILS % 57 % (40-70)
[2021-02-20] MEDS: MULTIVITAMINS WITH MINERALS, THERAPEUTIC TABLET PO SCH (09:35)
[2021-02-20] MEDS: ASCORBIC ACID 500 MG TABLET PO SCH ×2 (09:35→20:05)
[2021-02-20] MEDS: INSULIN GLARGINE,HUM.REC.ANLOG 100 UNITS/ML SQ SCH ×2 (09:39→20:15)
[2021-02-20] MEDS: INSULIN LISPRO 100 UNITS/ML SQ PRN ×3 (11:37→20:13)
[2021-02-20 12:52] LABS: GLUCOMETER DEV NAME(LOC) 6N.1; GLUCOSE,POINT OF CARE 216 MG/DL (70-110)
[2021-02-20 12:52] LABS: GLUCOMETER DEV NAME(LOC) 6S.1; GLUCOSE,POINT OF CARE 165 MG/DL (70-110)
[2021-02-20] MEDS: BISACODYL 10 MG RECTAL RECTAL SUPPOSITORY PR PRN (15:57)
[2021-02-20 16:05] VITALS: BP 136/80
[2021-02-20 20:02] LABS: GLUCOMETER DEV NAME(LOC) 6N.1; GLUCOSE,POINT OF CARE 184 MG/DL (70-110)
[2021-02-20] MEDS: MELATONIN 3 MG TABLET PO PRN (20:05)
[2021-02-20 21:07] VITALS: BP 159/91
[2021-02-20 21:18] LABS: GLUCOMETER DEV NAME(LOC) 6N.1; GLUCOSE,POINT OF CARE 302 MG/DL (70-110)
[2021-02-21] MEDS: CeFAZolin 2 GM/DEXTROSE 50 ML IV SCH ×3 (02:22→17:12)
[2021-02-21] MEDS ORDERED: SODIUM CHLORIDE 0.9% 250 ML IV ONE ×2 (02:23→10:03)
[2021-02-21 04:52] VITALS: BP 142/84
[2021-02-21 06:37] LABS: BASOPHILS % (AUTO) 1.1 % (0.0-2.0); HEMATOCRIT 37.4 % (41-53); HEMOGLOBIN 12.9 g/dL (13.5-17.5); LYMPHOCYTES # (AUTO) 1.9 K/uL (1.0-4.8); LYMPHOCYTES % (AUTO) 35.5 % (22.0-44.0); MEAN CORPUSCULAR HEMOGLOBIN 33.9 pg (26.0-34.0); MEAN CORPUSCULAR HGB CONC 34.6 G/dL (31.0-37.0); MEAN CORPUSCULAR VOLUME 98 fL (80-100); MONOCYTES # (AUTO) 0.8 K/uL (0.1-1.0); MONOCYTES % (AUTO) 13.8 % (2.0-9.0); NEUTROPHILS # (AUTO) 1.9 K/uL (1.8-7.7); NEUTROPHILS % (AUTO) 34.6 % (40.0-70.0); PLATELET COUNT (AUTO) 293 K/uL (150-450); RED BLOOD CELL COUNT(AUTO) 3.82 MIL/uL (4.50-5.90); RED CELL DISTRIBUTION WIDTH 11.7 % (11.5-14.5)
[2021-02-21 06:44] LABS: GLUCOMETER DEV NAME(LOC) 6N.1; GLUCOSE,POINT OF CARE 130 MG/DL (70-110)
[2021-02-21 06:57] LABS: ALANINE AMINOTRANSFERASE 31 U/L (12-78); ALBUMIN 3.1 g/dL (3.4-5.0); ALKALINE PHOSPHATASE 83 U/L (46-116); ANION GAP 5 mmol/L (8-16); ASPARTATE AMINOTRANSFERASE 17 U/L (15-37); BILIRUBIN,TOTAL 0.2 mg/dL (0.1-1.0); CALCIUM, TOTAL 8.4 mg/dL (8.8-10.5); CARBON DIOXIDE 31 mmol/L (22-29); CHLORIDE 103 mmol/L (98-107); CREATININE 0.74 mg/dL (0.60-1.30); GLOMERULAR FILTR. RATE CALC > 60 mL/min (>60); GLUCOSE,RANDOM 124 mg/dL (70-110); POTASSIUM 4.2 mmol/L (3.5-5.1); SODIUM SERUM 139 mmol/L (136-145); TOTAL PROTEIN, SERUM 7.5 g/dL (6.4-8.2); UREA NITROGEN, BLOOD 10 mg/dL (7-18)
[2021-02-21] MEDS: INSULIN GLARGINE,HUM.REC.ANLOG 100 UNITS/ML SQ SCH ×2 (08:09→21:01)
[2021-02-21] MEDS: ASCORBIC ACID 500 MG TABLET PO SCH ×2 (08:10→20:56)
[2021-02-21] MEDS: MULTIVITAMINS WITH MINERALS, THERAPEUTIC TABLET PO SCH (08:10)
[2021-02-21 08:16] VITALS: BP 153/90
[2021-02-21] MEDS: INSULIN LISPRO 100 UNITS/ML SQ PRN ×3 (12:08→21:02)
[2021-02-21 12:17] VITALS: BP 151/88
[2021-02-21 15:38] VITALS: BP 158/85
[2021-02-21 15:45] LABS: GLUCOMETER DEV NAME(LOC) 6S.1; GLUCOSE,POINT OF CARE 200 MG/DL (70-110)
[2021-02-21 20:08] VITALS: BP 141/89
[2021-02-21] MEDS: MELATONIN 3 MG TABLET PO PRN (20:55)
[2021-02-21] MEDS: ACETAMINOPHEN 325 MG TABLET PO PRN (20:57)
[2021-02-21] MEDS: DiphenhydrAMINE HCL 25 MG CAPSULE PO PRN (20:59)
[2021-02-21 22:39] LABS: GLUCOMETER DEV NAME(LOC) 6S.1; GLUCOSE,POINT OF CARE 270 MG/DL (70-110)
[2021-02-21 22:39] LABS: GLUCOMETER DEV NAME(LOC) 6S.1; GLUCOSE,POINT OF CARE 150 MG/DL (70-110)
[2021-02-22] MEDS: CeFAZolin 2 GM/DEXTROSE 50 ML IV SCH ×2 (02:15→09:54)
[2021-02-22 04:32] VITALS: BP 124/79
[2021-02-22 07:30] LABS: GLUCOMETER DEV NAME(LOC) 6N.1; GLUCOSE,POINT OF CARE 119 MG/DL (70-110)
[2021-02-22 08:04] LABS: HEMATOCRIT 37.4 % (41-53); HEMOGLOBIN 12.9 g/dL (13.5-17.5); MEAN CORPUSCULAR HGB CONC 34.6 G/dL (31.0-37.0); MEAN CORPUSCULAR VOLUME 98 fL (80-100); PLATELET COUNT (AUTO) 272 K/uL (150-450); RED BLOOD CELL COUNT(AUTO) 3.81 MIL/uL (4.50-5.90)
[2021-02-22] MEDS: ASCORBIC ACID 500 MG TABLET PO SCH (08:04)
[2021-02-22] MEDS: MULTIVITAMINS WITH MINERALS, THERAPEUTIC TABLET PO SCH (08:04)
[2021-02-22] MEDS: INSULIN GLARGINE,HUM.REC.ANLOG 100 UNITS/ML SQ SCH (08:06)
[2021-02-22 08:18] VITALS: BP 127/83
[2021-02-22 08:27] LABS: ALANINE AMINOTRANSFERASE 28 U/L (12-78); ALBUMIN 3.1 g/dL (3.4-5.0); ALKALINE PHOSPHATASE 79 U/L (46-116); ANION GAP 7 mmol/L (8-16); ASPARTATE AMINOTRANSFERASE 23 U/L (15-37); BILIRUBIN,TOTAL 0.3 mg/dL (0.1-1.0); CALCIUM, TOTAL 8.6 mg/dL (8.8-10.5); CARBON DIOXIDE 31 mmol/L (22-29); CHLORIDE 103 mmol/L (98-107); CREATININE 0.73 mg/dL (0.60-1.30); GLOMERULAR FILTR. RATE CALC > 60 mL/min (>60); GLUCOSE,RANDOM 107 mg/dL (70-110); POTASSIUM 4.2 mmol/L (3.5-5.1); SODIUM SERUM 141 mmol/L (136-145); TOTAL PROTEIN, SERUM 7.5 g/dL (6.4-8.2); UREA NITROGEN, BLOOD 11 mg/dL (7-18)
[2021-02-22 09:51] LABS: BAND NEUTROPHILS % (MANUAL) 1 % (0-5); EOSINOPHILS % (MANUAL) 5 % (1-6); LYMPHOCYTES % (MANUAL) 41 % (22-44); MONOCYTES % (MANUAL) 3 % (2-9); SEGMENTED NEUTROPHILS % 50 % (40-70)
[2021-02-22] MEDS: BISACODYL 10 MG RECTAL RECTAL SUPPOSITORY PR PRN (11:17)
[2021-02-22] MEDS: INSULIN LISPRO 100 UNITS/ML SQ PRN (12:19)
[2021-02-22 13:11] LABS: GLUCOMETER DEV NAME(LOC) 6N.1; GLUCOSE,POINT OF CARE 194 MG/DL (70-110)
[2021-02-22] MEDS ORDERED: ZINC220C14 PO (15:29)
[2021-02-22] MEDS ORDERED: ASCO500 PO (15:29)
[2021-02-22] MEDS ORDERED: CEPH500C3 PO (15:30)
[2021-02-22] MEDS ORDERED: MULT-1203 PO (15:30)
[2021-02-22] MEDS ORDERED: INSLAN SQ (15:31)
== END 2021-02-22 16:00 | disposition home or self-care (01) | DRG 361 ==
LOC: EMS 12:53 → 6S 02-02 06:25 → 6N 02-02 10:00 → 6S 02-02 11:05 → 6N 02-02 21:05
PROVIDERS: ADMIT Internal Medicine; ATTEND Internal Medicine
PROC: 0KBP0ZZ Excision of Left Hip Muscle, Open Approach (ICD-10-PCS; 2021-02-05)
PROC: 0HBHXZZ Excision of Right Upper Leg Skin, External Approach (ICD-10-PCS; 2021-02-14)
PROC: 0HRJX74 Replacement of Left Upper Leg Skin with Autologous Tissue Substitute, Partial Thickness, External Approach (ICD-10-PCS; principal; 2021-02-14 12:00)
DX: L03.116 Cellulitis of left lower limb (principal); R65.10 Systemic inflammatory response syndrome (SIRS) of non-infectious origin without acute organ dysfunction; E87.1 Hypo-osmolality and hyponatremia; L02.416 Cutaneous abscess of left lower limb; E11.65 Type 2 diabetes mellitus with hyperglycemia; E87.6 Hypokalemia; E66.01 Morbid (severe) obesity due to excess calories; Z68.37 Body mass index [BMI] 37.0-37.9, adult; I10 Essential (primary) hypertension; Z79.4 Long term (current) use of insulin; E66.9 Obesity, unspecified; L29.9 Pruritus, unspecified; E80.6 Other disorders of bilirubin metabolism; Z20.822 Contact with and (suspected) exposure to COVID-19; Z83.3 Family history of diabetes mellitus
CPT/HCPCS: 71045; 73701; 80048; 80053; 80202; 81001; 82009; 82550; 82962; 83036; 83605; 83735; 83930; 83935; 84132; 84145; 84300; 84484; 85025; 85610; 85730; 87040; 87070; 87077; 87081; 87186; 87205; 87804; 88304; 93005; 99285; G0238; J0330; J0690; J1100; J1170; J1644; J1815; J1885; J2250; J2270; J2405; J2543; J2704; J3010; J3370; J3490; J7030; J7040; J7050; J7060; J7120; Q9967; 36415-L1; 36415-TC; Z7610